=== PATIENT | male | born 1960 | race Caucasian/White ===

== ENCOUNTER 2022-05-16 11:00 | Inpatient (IN) | payer SELFPAY ==
[2022-05-16] MEDS ORDERED: Morphine 2 MG/ML VIAL SLOW IVP PRN ×2 (12:55)
[2022-05-16] MEDS ORDERED: Acetaminophen/Codeine 30-300mg Tablet PO PRN (12:55)
[2022-05-16] MEDS ORDERED: Milk Of Magnesia 30 ML UDCUP PO PRN (12:55)
[2022-05-16] MEDS ORDERED: Mag-Al 1200 mg/1200 mg/30 ML UDCUP PO PRN (12:55)
[2022-05-16] MEDS ORDERED: Zolpidem Tartrate 5 MG TAB PO PRN (12:55)
[2022-05-16] MEDS ORDERED: Nitroglycerin 0.4 MG TAB (25 Tab Bottle) SL PRN (12:55)
[2022-05-16] MEDS: Nitroglycerin 2% Ointment 1 INCH/1 GM Packet TOP SCH ×2 (13:24→22:33)
[2022-05-16 13:38] VITALS: BMI 26.9
[2022-05-16] MEDS ORDERED: hydrALAZINE 20 MG/ML VIAL SLOW IVP SCH (14:00)
[2022-05-16 14:30] LABS: Troponin I 8.214 ng/mL (< 0.028)
[2022-05-16] MEDS ORDERED: Iopamidol 370 76% 100 ML VIAL ONE (16:06)
[2022-05-16 18:00] LABS: Troponin I 36.494 ng/mL (< 0.028)
[2022-05-16] MEDS: Metoprolol Tartrate 25 MG TAB PO SCH (20:15)
[2022-05-16] MEDS: TICAGRELOR 90 MG TABLET PO SCH (20:15)
[2022-05-16] MEDS: Atorvastatin Calcium 40 MG TAB PO SCH (20:15)
[2022-05-16 23:24] LABS: SARS-CoV-2 NAA Rapid Test Not Detected (NotDetected)
[2022-05-17 04:24] LABS: #Eosinphils 0.1 thou/uL (0.0-0.7); #Lymphocytes 1.4 thou/uL (1.20-3.40); #Monocytes 0.8 thou/uL (0.11-0.59); #Neutrophils 7.9 thou/uL (1.40-6.50); %Basophils 0.4 % (0.0-1.0); %Eosinophils 0.6 % (0.0-10.0); %Lymphocytes 13.8 % (21.0-51.0); %Monocytes 7.4 % (0.0-10.0); %Neutrophils 77.8 % (42.0-75.0); Mean Corpuscular HGB CONC 33.2 g/dL (32.0-36.0); Mean Corpuscular Hemoglobin 27.8 pg (27.0-31.0); Mean Corpuscular Volume 83.8 fl (78.0-98.0); Mean Platelet Volume 8.4 fL (7.4-10.4); Platelet Count 201 10x3/uL (130-400); RBC Distribution Width 13.2 % (11.5-14.5); Red Blood Cell (RBC) Count 4.67 mill/uL (4.70-6.10); White Blood Cell (WBC) Count 10.2 10x3/uL (4.8-10.8)
[2022-05-17 04:43] LABS: Anion Gap 13 mmol/L (10-20); BUN (Urea Nitrogen) 12 mg/dL (8.4-25.7); Calc. Creatinine Clearance 76 mL/min (70-130); Carbon Dioxide 23 mmol/L (23-31); Chloride 103 mmol/L (98-107); Potassium 3.7 mmol/L (3.5-5.1); Sodium 135 mmol/L (136-145)
[2022-05-17 04:44] LABS: ALT (SGPT) 27 U/L (8-55); AST (SGOT) 184 U/L (5-34); Albumin 3.8 g/dL (3.4-4.8); Alkaline Phosphatase 76 U/L (40-110); Bilirubin, Total 1.4 mg/dL (0.2-1.2); Cardiac Risk 5.1 (Less than 4.5); Cholesterol 195 mg/dl (< 200 Desired); Estimated GFR 71; Globulin 3.4 g/dL (2.4-3.5); Glucose 102 mg/dL (80-115); HDL Cholesterol 38 mg/dL (>60 Neg Risk); LDL Cholesterol, Calculated 129 mg/dL; Protein, Total 7.2 g/dL (5.8-8.1); Triglycerides 142 mg/dL (Less than 150)
[2022-05-17] MEDS: Nitroglycerin 2% Ointment 1 INCH/1 GM Packet TOP SCH ×3 (06:33→20:59)
[2022-05-17] MEDS: Aspirin 81 mg Enteric Coated Tablet PO SCH (09:11)
[2022-05-17] MEDS: TICAGRELOR 90 MG TABLET PO SCH ×2 (09:12→20:50)
[2022-05-17] MEDS: Lisinopril 2.5 MG TAB PO SCH (09:12)
[2022-05-17] MEDS: Metoprolol Tartrate 25 MG TAB PO SCH ×2 (09:12→20:50)
[2022-05-17 17:46] LABS: Critical Call Chem Troponin I RESULT DECREASING; Troponin I 24.488 ng/mL (< 0.028)
[2022-05-17] MEDS: Atorvastatin Calcium 40 MG TAB PO SCH (20:50)
[2022-05-18] MEDS: Nitroglycerin 2% Ointment 1 INCH/1 GM Packet TOP SCH (05:15)
[2022-05-18] MEDS: Metoprolol Tartrate 25 MG TAB PO SCH ×2 (10:04→20:18)
[2022-05-18] MEDS: TICAGRELOR 90 MG TABLET PO SCH ×2 (10:04→20:18)
[2022-05-18] MEDS: Aspirin 81 mg Enteric Coated Tablet PO SCH (10:04)
[2022-05-18] MEDS: Lisinopril 2.5 MG TAB PO SCH (10:12)
[2022-05-18] MEDS: Atorvastatin Calcium 40 MG TAB PO SCH (20:18)
[2022-05-19 07:06] LABS: ALT (SGPT) 26 U/L (8-55); AST (SGOT) 59 U/L (5-34); Albumin 3.8 g/dL (3.4-4.8); Alkaline Phosphatase 81 U/L (40-110); Anion Gap 13 mmol/L (10-20); BUN (Urea Nitrogen) 21 mg/dL (8.4-25.7); Calc. Creatinine Clearance 75 mL/min (70-130); Carbon Dioxide 21 mmol/L (23-31); Chloride 103 mmol/L (98-107); Estimated GFR 71; Globulin 3.6 g/dL (2.4-3.5); Glucose 96 mg/dL (80-115); Protein, Total 7.4 g/dL (5.8-8.1); Sodium 133 mmol/L (136-145)
[2022-05-19] MEDS ORDERED: Lisinopril 10 MG TAB PO SCH (09:00)
[2022-05-19] MEDS ORDERED: Lisinopril 5 MG TAB PO SCH ×2 (09:00→09:04)
[2022-05-19] MEDS: TICAGRELOR 90 MG TABLET PO SCH (09:15)
[2022-05-19] MEDS: Aspirin 81 mg Enteric Coated Tablet PO SCH (09:15)
[2022-05-19] MEDS: Metoprolol Tartrate 25 MG TAB PO SCH (09:16)
[2022-05-19 09:20] VITALS: TEMP 98.3
[2022-05-19 12:24] VITALS: BP 144/102
== END 2022-05-19 12:20 | disposition home or self-care (01) | DRG 247 ==
LOC: CCL 11:00 → CCU 11:28 → NEURO 05-17 16:05
PROVIDERS: ADMIT Internal Medicine Cardiovascular Disease; ATTEND Internal Medicine Cardiovascular Disease
PROC: 027034Z Dilation of Coronary Artery, One Artery with Drug-eluting Intraluminal Device, Percutaneous Approach (ICD-10-PCS; principal; 2022-05-16)
PROC: 4A023N7 Measurement of Cardiac Sampling and Pressure, Left Heart, Percutaneous Approach (ICD-10-PCS; 2022-05-16)
PROC: B2111ZZ Fluoroscopy of Multiple Coronary Arteries using Low Osmolar Contrast (ICD-10-PCS; 2022-05-16)
PROC: B2151ZZ Fluoroscopy of Left Heart using Low Osmolar Contrast (ICD-10-PCS; 2022-05-16)
DX: I21.09 ST elevation (STEMI) myocardial infarction involving other coronary artery of anterior wall (principal); Z20.822 Contact with and (suspected) exposure to COVID-19; I10 Essential (primary) hypertension; E78.5 Hyperlipidemia, unspecified; F17.210 Nicotine dependence, cigarettes, uncomplicated; F12.10 Cannabis abuse, uncomplicated; K21.9 Gastro-esophageal reflux disease without esophagitis; Z98.890 Other specified postprocedural states
CPT/HCPCS: 36415; 71045; 80053; 80061; 84484; 85025; 85347; 92941; 93005; 93010; 93306; 93458; 93798; C1769; C1874; C1894; C9606; J0360; J1650; J2272; Q9967; U0002